=== PATIENT | female | born 1955 | race Caucasian/White ===

== ENCOUNTER 2017-06-11 15:17 | Inpatient (IN) | payer OTHER ==
[~2017-06-11] VITALS: Ht 149.9 cm; Wt 63.4 kg
[~2017-06-11 15:17] MED LIST: LIPITOR 10MG10 MG PO
[2017-06-11 17:03] VITALS: BP 136/59; PULSE 67; TEMP 97.1
[2017-06-11] MEDS ORDERED: NEXIUM 20MG20 MG PO (17:09)
[2017-06-11] MEDS ORDERED: CALCIUM CARBON650 M2 PO (17:09)
[2017-06-11] MEDS ORDERED: TYLENOL 325MG325 MG PO (17:09)
[2017-06-11] MEDS ORDERED: PROFERRIN ES12 MG (17:10)
[2017-06-11 21:40] VITALS: BP 124/59; PULSE 83; TEMP 100.2
[2017-06-11 22:39] VITALS: TEMP 99
[2017-06-12] VITALS (8 sets, daily range): BP systolic 89–113; BP diastolic 42–90; PULSE 57–77; TEMP 97.5–98.8
[2017-06-12 14:12] LABS: BASO % 0.3 % (0.0-2.0); EOS % 0.1 % (0-4.0); GRAN # 8.4 (1.4-6.5); GRAN % 83.8 % (42.2-75.2); HEMATOCRIT 29.7 % (37.0-47.0); HEMOGLOBIN 9.5 g/dl (12.5-16.0); LYMPH % 9.8 % (20.0-51.0); MEAN CELL VOLUME 86 fl (80.0-100.0); MEAN CORPUSCULAR HEMOGLOBIN 28 pg (27.0-31.0); MEAN CORPUSCULAR HGB CONC 32 g/dl (33.0-37.0); MEAN PLATELET VOLUME 10.4 fl (7.4-10.4); MONO # 0.5 (0.1-0.6); MONO % 5.2 % (1.7-9.3); PLATELET COUNT 338 K/mm3 (130-400); RED BLOOD COUNT 3.44 M/mm3 (4.10-5.30); WHITE BLOOD COUNT 10.1 K/mm3 (4.8-10.8)
[2017-06-12 14:21] LABS: CALCIUM 8.1 mg/dL (8.4-10.2); CREATININE, serum 0.62 mg/dL (0.52-1.25); POTASSIUM 3.3 mmol/L (3.4-5.0)
[2017-06-13 03:34] VITALS: BP 95/43; PULSE 63; TEMP 98.2
[2017-06-13 07:42] VITALS: BP 112/86; PULSE 60; TEMP 97.7
[2017-06-13 11:12] VITALS: BP 125/78; PULSE 70; TEMP 97.7
[2017-06-13 15:35] VITALS: BP 105/53; PULSE 55; TEMP 97.6
[2017-06-13 19:35] VITALS: BP 133/57; PULSE 64; TEMP 98.6
[2017-06-13 23:10] VITALS: BP 119/50; PULSE 93; TEMP 98.7
[2017-06-14 05:01] VITALS: BP 156/68; PULSE 75; TEMP 97.9
[2017-06-14 07:19] VITALS: BP 152/77; PULSE 71; TEMP 97.6
[2017-06-14 11:48] VITALS: BP 140/64; PULSE 60; TEMP 98.5
[2017-06-14 15:45] VITALS: BP 148/71; PULSE 70; TEMP 98.5
[2017-06-14 19:16] VITALS: BP 154/74; PULSE 76; TEMP 98.8
[2017-06-14 23:04] VITALS: BP 164/78; PULSE 77; TEMP 99.7
[2017-06-15 03:22] VITALS: BP 146/67; PULSE 77; TEMP 98.6
[2017-06-15 06:48] LABS: BASO # 0.1 (0.0-0.2); BASO % 0.7 % (0.0-2.0); EOS # 0.1 (0.0-0.7); EOS % 0.7 % (0-4.0); GRAN # 4.6 (1.4-6.5); GRAN % 65.6 % (42.2-75.2); HEMATOCRIT 31.6 % (37.0-47.0); HEMOGLOBIN 10.1 g/dl (12.5-16.0); LYMPH # 1.5 (1.2-3.4); LYMPH % 22.1 % (20.0-51.0); MEAN CELL VOLUME 84 fl (80.0-100.0); MEAN CORPUSCULAR HEMOGLOBIN 27 pg (27.0-31.0); MEAN CORPUSCULAR HGB CONC 32 g/dl (33.0-37.0); MEAN PLATELET VOLUME 10.3 fl (7.4-10.4); MONO # 0.7 (0.1-0.6); MONO % 10.6 % (1.7-9.3); PLATELET COUNT 387 K/mm3 (130-400); RED BLOOD COUNT 3.76 M/mm3 (4.10-5.30)
[2017-06-15 07:00] LABS: ANION GAP 7 mmol/L (7-16); CALCIUM 8.2 mg/dL (8.4-10.2); CARBON DIOXIDE 28 mmol/L (22-30); CHLORIDE 100 mmol/L (98-107); CREATININE, serum 0.53 mg/dL (0.52-1.25); GLUCOSE 119 mg/dL (74-106); SODIUM 135 mmol/L (137-145)
[2017-06-15 07:03] LABS: BLOOD UREA NITROGEN < 2 mg/dL (7-17)
[2017-06-15 07:27] VITALS: BP 154/76; PULSE 86; TEMP 98.2
[2017-06-15 11:21] VITALS: BP 140/68; PULSE 74; TEMP 97.3
[2017-06-15 15:41] VITALS: BP 148/66; PULSE 78; TEMP 97.8
== END 2017-06-15 18:52 | disposition home or self-care (01) | DRG 392 ==
LOC: MEDICAL 15:17
PROVIDERS: Surgery
DX: K57.20 Diverticulitis of large intestine with perforation and abscess without bleeding (principal); J44.9 Chronic obstructive pulmonary disease, unspecified; Z87.891 Personal history of nicotine dependence
CPT/HCPCS: A9284; J1170; J1650; J2543; J3480; J7040; J7050

== ENCOUNTER 2017-08-08 12:44 | Inpatient (IN) | payer OTHER ==
[~2017-08-08] VITALS: Ht 149.9 cm; Wt 57.3 kg
[~2017-08-08 12:44] MED LIST changes: +CALCIUM CARBON650 M2 PO; +NEXIUM 20MG20 MG PO; +PROFERRIN ES12 MG; +TYLENOL 325MG325 MG PO
[2017-11-29] VITALS (11 sets, daily range): BP systolic 90–148; BP diastolic 43–70; PULSE 54–109; TEMP 97.4–97.5
[2017-11-29] MEDS ORDERED: SEREVENT IH (06:18)
[2017-11-29] MEDS ORDERED: PROAIR HFA0.09 MG/AC IH (06:18)
[2017-11-29] MEDS ORDERED: RT SPIRIVA18 MCG IH (06:18)
[2017-11-29] MEDS ORDERED: LIPITOR20 MG PO (06:18)
[2017-11-29] MEDS ORDERED: PRILOSEC 20MG20 MG PO (06:19)
[2017-11-29] MEDS ORDERED: OS-CAL 500 + D1 TAB PO (06:20)
[2017-11-30] VITALS (7 sets, daily range): BP systolic 87–99; BP diastolic 46–58; PULSE 67–95; TEMP 97.6–98.4
[2017-11-30 06:24] LABS: MEAN CELL VOLUME 85 fl (80.0-100.0); MEAN CORPUSCULAR HGB CONC 32 g/dl (33.0-37.0); MEAN PLATELET VOLUME 11.1 fl (7.4-10.4); PLATELET COUNT 262 K/mm3 (130-400); RED BLOOD COUNT 4.04 M/mm3 (4.10-5.30); REDCELL DISTRIBUTION WIDTH-CV 17.2 % (11.5-14.5)
[2017-11-30 06:26] LABS: HEMATOCRIT 34.3 % (37.0-47.0); HEMOGLOBIN 10.9 g/dl (12.5-16.0); MEAN CORPUSCULAR HEMOGLOBIN 27 pg (27.0-31.0)
[2017-11-30 06:40] LABS: CALCIUM 7.5 mg/dL (8.4-10.2); CREATININE, serum 0.72 mg/dL (0.52-1.25); POTASSIUM 3.8 mmol/L (3.4-5.0)
[2017-11-30 07:30] LABS: ANISOCYTOSIS 1+; BAND 63 % (0-10); LYMPHOCYTE 6 % (20.0-51.0); NEUTROPHILS 30 % (42.0-75.2); PLATELET ESTIMATE NORMAL (NORMAL)
[2017-12-01] VITALS (8 sets, daily range): BP systolic 82–120; BP diastolic 45–53; PULSE 68–95; TEMP 97.5–98.5
[2017-12-01 07:09] LABS: BASO % 0.4 % (0.0-2.0); GRAN # 9.6 (1.4-6.5); GRAN % 86.2 % (42.2-75.2); LYMPH # 1.1 (1.2-3.4); LYMPH % 10.3 % (20.0-51.0); MEAN CELL VOLUME 86 fl (80.0-100.0); MEAN CORPUSCULAR HGB CONC 31 g/dl (33.0-37.0); MEAN PLATELET VOLUME 10.5 fl (7.4-10.4); MONO # 0.3 (0.1-0.6); MONO % 2.5 % (1.7-9.3); PLATELET COUNT 217 K/mm3 (130-400); RED BLOOD COUNT 3.71 M/mm3 (4.10-5.30); REDCELL DISTRIBUTION WIDTH-CV 17.2 % (11.5-14.5)
[2017-12-01 07:11] LABS: HEMATOCRIT 31.8 % (37.0-47.0); HEMOGLOBIN 9.8 g/dl (12.5-16.0); MEAN CORPUSCULAR HEMOGLOBIN 26 pg (27.0-31.0)
[2017-12-01 07:26] LABS: CALCIUM 7.8 mg/dL (8.4-10.2); CREATININE, serum 0.71 mg/dL (0.52-1.25); POTASSIUM 3.9 mmol/L (3.4-5.0)
[2017-12-02 01:31] VITALS: BP 105/59; PULSE 85; TEMP 98.3
[2017-12-02 05:09] VITALS: BP 137/60; PULSE 86; TEMP 98
[2017-12-02 11:12] VITALS: BP 104/54; PULSE 77; TEMP 98.9
[2017-12-02 15:15] VITALS: BP 112/48; PULSE 87; TEMP 98.4
[2017-12-02 19:00] VITALS: BP 140/61; PULSE 92; TEMP 98.1
[2017-12-02 21:25] VITALS: BP 145/64; PULSE 94; TEMP 98.4
[2017-12-03 02:15] VITALS: BP 127/54; PULSE 90; TEMP 98
[2017-12-03 05:41] VITALS: BP 140/56; PULSE 102; TEMP 98.6
[2017-12-03 13:20] VITALS: BP 109/60; PULSE 91; TEMP 98.2
[2017-12-03 20:19] VITALS: BP 128/79; PULSE 89; TEMP 97.4
[2017-12-04 00:12] VITALS: BP 98/49; PULSE 84; TEMP 97.5
[2017-12-04 05:10] VITALS: BP 115/63; PULSE 78; TEMP 98
[2017-12-04 10:37] VITALS: BP 128/65; PULSE 86; TEMP 99
[2017-12-04 14:32] VITALS: BP 123/65; PULSE 75; TEMP 97.6
== END 2017-12-04 18:26 | disposition home or self-care (01) | DRG 330 ==
LOC: SURG 09-06 07:30 → INPTSU 11-29 05:20 → SURG 11-29 05:20
PROVIDERS: Surgery
PROC: 0WJP4ZZ Inspection of Gastrointestinal Tract, Percutaneous Endoscopic Approach (ICD-10-PCS; 2017-11-29)
PROC: 8E0W0CZ Robotic Assisted Procedure of Trunk Region, Open Approach (ICD-10-PCS; 2017-11-29)
PROC: 0DTN0ZZ Resection of Sigmoid Colon, Open Approach (ICD-10-PCS; principal; 2017-11-29 07:30)
DX: K57.20 Diverticulitis of large intestine with perforation and abscess without bleeding (principal); J44.9 Chronic obstructive pulmonary disease, unspecified; Z87.891 Personal history of nicotine dependence
CPT/HCPCS: A4314; A9284; C1751; J0690; J1100; J1644; J1650; J2300; J2405; J2704; J2765; J3010; J7030; J7042; J7120

== ENCOUNTER → 2018-02-27 | Outpatient (CLI) | payer OTHER ==
[~2018-02-27] MED LIST changes: +LIPITOR20 MG PO; +OS-CAL 500 + D1 TAB PO; +PRILOSEC 20MG20 MG PO; +PROAIR HFA0.09 MG/AC IH; +RT SPIRIVA18 MCG IH; +SEREVENT IH
== END ==
LOC: ZCOL.LAB 13:52
DX: T81.4XXA Infection following a procedure, initial encounter (principal)

== ENCOUNTER → 2018-04-27 | Outpatient (CLI) | payer OTHER | LOC: COL.RAD 07:33 | DX: T81.4XXD Infection following a procedure, subsequent encounter (principal); K44.9 Diaphragmatic hernia without obstruction or gangrene; R93.5 Abnormal findings on diagnostic imaging of other abdominal regions, including retroperitoneum; R19.04 Left lower quadrant abdominal swelling, mass and lump; K63.89 Other specified diseases of intestine; Z90.49 Acquired absence of other specified parts of digestive tract; Z90.710 Acquired absence of both cervix and uterus | CPT/HCPCS: Q9967 ==

== ENCOUNTER 2018-05-03 15:35 | Inpatient (IN) | payer OTHER ==
[~2018-05-03] VITALS: Ht 149.9 cm; Wt 54.6 kg
[2018-05-08] VITALS (8 sets, daily range): BP systolic 64–110; BP diastolic 44–65; PULSE 63–78; TEMP 97.5–97.7
[2018-05-08 11:18] LABS: HEMATOCRIT 33.6 % (37.0-47.0); HEMOGLOBIN 10.6 g/dl (12.5-16.0)
[2018-05-08 11:48] LABS: CREATININE, serum 0.57 mg/dL (0.52-1.25); POTASSIUM 3.8 mmol/L (3.4-5.0)
[2018-05-09 04:00] VITALS: BP 95/46; PULSE 63; TEMP 97.3
[2018-05-09 06:25] LABS: BASO % 0.2 % (0.0-2.0); GRAN # 13.2 (1.4-6.5); GRAN % 89.2 % (42.2-75.2); LYMPH % 6.4 % (20.0-51.0); MEAN CELL VOLUME 78 fl (80.0-100.0); MEAN CORPUSCULAR HGB CONC 32 g/dl (33.0-37.0); MEAN PLATELET VOLUME 10.2 fl (7.4-10.4); MONO # 0.6 (0.1-0.6); MONO % 3.7 % (1.7-9.3); PLATELET COUNT 279 K/mm3 (130-400); RED BLOOD COUNT 3.49 M/mm3 (4.10-5.30)
[2018-05-09 06:29] LABS: HEMATOCRIT 27.3 % (37.0-47.0); HEMOGLOBIN 8.8 g/dl (12.5-16.0); MEAN CORPUSCULAR HEMOGLOBIN 25 pg (27.0-31.0)
[2018-05-09 06:41] LABS: CALCIUM 8.3 mg/dL (8.4-10.2); CREATININE, serum 0.53 mg/dL (0.52-1.25)
[2018-05-09 09:00] VITALS: BP 125/64; PULSE 78; TEMP 98.8
[2018-05-09 11:29] VITALS: BP 94/43; PULSE 74; TEMP 97.4
[2018-05-09 15:59] VITALS: BP 108/53; PULSE 74; TEMP 98.1
[2018-05-09 21:21] VITALS: BP 132/51; PULSE 80; TEMP 98.5
[2018-05-10] VITALS (8 sets, daily range): BP systolic 93–116; BP diastolic 43–72; PULSE 67–84; TEMP 97.4–98.7
[2018-05-10 06:26] LABS: BASO % 0.2 % (0.0-2.0); GRAN # 4.6 (1.4-6.5); GRAN % 73.7 % (42.2-75.2); LYMPH # 0.9 (1.2-3.4); LYMPH % 14.6 % (20.0-51.0); MEAN CELL VOLUME 78 fl (80.0-100.0); MEAN CORPUSCULAR HGB CONC 32 g/dl (33.0-37.0); MEAN PLATELET VOLUME 10.1 fl (7.4-10.4); MONO # 0.7 (0.1-0.6); MONO % 11.2 % (1.7-9.3); PLATELET COUNT 326 K/mm3 (130-400); RED BLOOD COUNT 3.55 M/mm3 (4.10-5.30); REDCELL DISTRIBUTION WIDTH-CV 16.1 % (11.5-14.5)
[2018-05-10 06:27] LABS: HEMATOCRIT 27.5 % (37.0-47.0); HEMOGLOBIN 8.7 g/dl (12.5-16.0); MEAN CORPUSCULAR HEMOGLOBIN 25 pg (27.0-31.0)
[2018-05-10 06:34] LABS: CALCIUM 8.2 mg/dL (8.4-10.2); CREATININE, serum 0.74 mg/dL (0.52-1.25)
[2018-05-11 07:15] VITALS: BP 135/67; PULSE 66; TEMP 97.3
[2018-05-11 11:26] VITALS: BP 104/54; PULSE 69; TEMP 98.1
[2018-05-11 16:00] VITALS: BP 132/62; PULSE 68; TEMP 98.5
[2018-05-11 19:23] VITALS: BP 159/72; PULSE 77; TEMP 99.4
[2018-05-11 23:00] VITALS: BP 167/77; PULSE 75; TEMP 98.2
[2018-05-12 03:09] VITALS: BP 156/74; PULSE 80; TEMP 98.6
[2018-05-12 08:07] VITALS: BP 117/55; PULSE 74; TEMP 98.3
[2018-05-12 12:08] VITALS: BP 124/52; PULSE 72; TEMP 98.2
[2018-05-12 16:39] VITALS: BP 134/69; PULSE 110; TEMP 98.6
[2018-05-12 20:00] VITALS: BP 113/70; PULSE 81; TEMP 98.7
[2018-05-13 04:00] VITALS: BP 119/56; BP 98/54; PULSE 74; PULSE 90; TEMP 97.9; TEMP 98.5
[2018-05-13 07:50] VITALS: BP 120/64; PULSE 86; TEMP 98.4
[2018-05-13 11:31] VITALS: BP 117/58; PULSE 71; TEMP 98.1
[2018-05-13 16:28] VITALS: BP 100/49; PULSE 75; TEMP 98.2
[2018-05-13 19:17] VITALS: BP 111/56; PULSE 78; TEMP 98.1
[2018-05-14 04:00] VITALS: BP 106/54; PULSE 81; TEMP 99.2
[2018-05-14 08:19] VITALS: BP 97/58; PULSE 80; TEMP 98.5
[2018-05-14 12:31] VITALS: BP 102/56; PULSE 74; TEMP 97.5
== END 2018-05-14 16:25 | disposition home or self-care (01) | DRG 330 ==
LOC: INPTSU 05-08 10:24 → SURG 05-08 10:24
PROVIDERS: Nurse Anesthetist, Certified Registered; Surgery; Urology
PROC: 0DTN0ZZ Resection of Sigmoid Colon, Open Approach (ICD-10-PCS; principal; 2018-05-08 12:30)
PROC: 0D1B0Z4 Bypass Ileum to Cutaneous, Open Approach (ICD-10-PCS; 2018-05-08 12:30)
PROC: 0DN80ZZ Release Small Intestine, Open Approach (ICD-10-PCS; 2018-05-08 12:30)
PROC: 0T778DZ Dilation of Left Ureter with Intraluminal Device, Via Natural or Artificial Opening Endoscopic (ICD-10-PCS; 2018-05-08 12:30)
DX: K63.2 Fistula of intestine (principal); L76.34 Postprocedural seroma of skin and subcutaneous tissue following other procedure; L02.211 Cutaneous abscess of abdominal wall; J44.9 Chronic obstructive pulmonary disease, unspecified; K66.0 Peritoneal adhesions (postprocedural) (postinfection)
CPT/HCPCS: A4314; A9284; C1769; C2617; J0690; J1100; J1170; J1650; J2250; J2270; J2405; J2543; J2550; J2704; J2795; J3010; J7120

== ENCOUNTER 2018-05-31 14:32 | Inpatient (IN) | payer OTHER ==
[~2018-05-31] VITALS: Ht 149.9 cm; Wt 54.7 kg
[2018-07-31] VITALS (8 sets, daily range): BP systolic 92–114; BP diastolic 32–51; PULSE 50–73; TEMP 97.5–97.7
[2018-08-01 00:22] VITALS: BP 110/49; PULSE 75; TEMP 98.6
[2018-08-01 05:04] VITALS: BP 97/48; PULSE 70; TEMP 98.6
[2018-08-01 08:02] LABS: BASO % 0.2 % (0.0-2.0); GRAN % 86.3 % (42.2-75.2); LYMPH % 11.8 % (20.0-51.0); MEAN CELL VOLUME 75 fl (80.0-100.0); MEAN CORPUSCULAR HGB CONC 31 g/dl (33.0-37.0); MEAN PLATELET VOLUME 9.8 fl (7.4-10.4); MONO # 0.1 (0.1-0.6); MONO % 1.2 % (1.7-9.3); PLATELET COUNT 339 K/mm3 (130-400); RED BLOOD COUNT 3.77 M/mm3 (4.10-5.30); REDCELL DISTRIBUTION WIDTH-CV 16.3 % (11.5-14.5)
[2018-08-01 08:07] LABS: HEMATOCRIT 28.4 % (37.0-47.0); HEMOGLOBIN 8.7 g/dl (12.5-16.0); MEAN CORPUSCULAR HEMOGLOBIN 23 pg (27.0-31.0)
[2018-08-01 08:30] LABS: CALCIUM 8.7 mg/dL (8.4-10.2); CREATININE, serum 0.69 mg/dL (0.52-1.25); POTASSIUM 4.2 mmol/L (3.4-5.0)
[2018-08-01 08:50] VITALS: BP 118/52; PULSE 75; TEMP 98.2
[2018-08-01 11:08] VITALS: BP 111/56; PULSE 63; TEMP 98.3
[2018-08-01 16:57] VITALS: BP 109/49; PULSE 73; TEMP 98.1
[2018-08-01 20:45] VITALS: BP 123/62; PULSE 70; TEMP 97.3
[2018-08-02] VITALS (7 sets, daily range): BP systolic 95–122; BP diastolic 45–62; PULSE 62–77; TEMP 97.4–98.9
[2018-08-03 04:03] VITALS: BP 112/54; PULSE 76; TEMP 98.5
[2018-08-03 07:59] VITALS: BP 112/53; PULSE 74; TEMP 98
== END 2018-08-03 10:30 | disposition home or self-care (01) | DRG 331 ==
LOC: SURG 07-04 11:00 → INPTSU 07-31 12:11 → SURG 07-31 12:11
PROVIDERS: Surgery
PROC: 0DBB0ZZ Excision of Ileum, Open Approach (ICD-10-PCS; principal; 2018-07-31 14:30)
DX: Z43.2 Encounter for attention to ileostomy (principal); Z87.891 Personal history of nicotine dependence
CPT/HCPCS: J1100; J1650; J1885; J1956; J2270; J2370; J2405; J2704; J2710; J3010; J7030; J7120

== ENCOUNTER → 2018-06-25 | Outpatient (CLI) | payer OTHER | LOC: COL.RAD 08:23 | DX: K63.89 Other specified diseases of intestine (principal); Z93.2 Ileostomy status ==

== ENCOUNTER 2018-07-11 08:59 | Day surgery (SDC) | payer OTHER ==
[~2018-07-11] VITALS: Ht 149.9 cm; Wt 54.2 kg
[2018-07-11 09:36] VITALS: BP 109/43; PULSE 72; TEMP 97.6
[2018-07-11 11:31] VITALS: BP 147/77; PULSE 77
== END 2018-07-11 12:40 | disposition home or self-care (01) ==
LOC: SDCO 08:59
DX: K57.30 Diverticulosis of large intestine without perforation or abscess without bleeding (principal); Z98.0 Intestinal bypass and anastomosis status; Z93.2 Ileostomy status; J44.9 Chronic obstructive pulmonary disease, unspecified; Z79.899 Other long term (current) drug therapy; K21.9 Gastro-esophageal reflux disease without esophagitis; E78.00 Pure hypercholesterolemia, unspecified; Z87.891 Personal history of nicotine dependence